=== PATIENT | male | born 1960 ===

== ENCOUNTER 2024-01-25 07:51 | Day surgery (SDC) | payer OTHER ==
[2024-01-25] MEDS ORDERED: DIPHENHYDRAMINE HCL 50 MG/ML VIAL 1ML IV ONE (12:45)
[2024-01-25] MEDS ORDERED: ONDANSETRON HCL 2 MG/ML VIAL IV ONE (12:45)
[2024-01-25] MEDS ORDERED: fentaNYL CITRATE 50 MCG/ML AMPUL IV PUSH ONE (12:45)
[2024-01-25] MEDS ORDERED: MIDAZOLAM HCL 2 MG/2 ML VIAL IV ONE (12:45)
== END 2024-01-25 14:55 | disposition home or self-care (01) ==
LOC: AMB-ENDOS 07:51
PROVIDERS: ATTEND Colon & Rectal Surgery
DX: K62.7 Radiation proctitis (principal); K62.89 Other specified diseases of anus and rectum; K64.8 Other hemorrhoids